=== PATIENT | female | born 1985 | race African-American/Black ===

== ENCOUNTER 2019-10-28 10:09 | Inpatient (IN) ==
[2019-10-28] MEDS ORDERED: CITRIC ACID/SODIUM CITRATE 30 ML UDCUP PO ONE (10:23)
[2019-10-28] MEDS ORDERED: FAMOTIDINE 20 MG/2 ML VIAL IV ONE (10:23)
[2019-10-28] MEDS ORDERED: ceFAZolin 2,000 MG in PREMIX 1 EACH IV ONE (10:23)
[2019-10-28] MEDS ORDERED: LACTATED RINGERS 1,000 ML IV SCH ×2 (10:30→14:30)
[2019-10-28 10:46] LABS: Basophils % 0.5 % (0.0-0.8); Eosinophils % 0.3 % (0.00-10.9); Hemoglobin 11.1 GM/DL (12.0-16.0); Immature Granulocytes % 0.3 %; Immature Granulocytes Absolute 0.02 #; Lymphocytes # 2.4 10*3/uL (1.4-4.0); Lymphocytes % 30.7 % (21.3-54.2); Mean Corpuscular Volume 69.9 FL (87-102); Monocytes % 8.4 % (1.7-12.7); Neutrophils % 59.8 % (38.7-73.9); Platelet Count 291 T/CUMM (130-400); Red Blood Count 5.29 MC/CUMM (3.8-5.5); Red Cell Distribution Width 14.8 % (9.3-17.3); White Blood Count 7.9 T/CUMM (4-12)
[2019-10-28 11:30] LABS: Alanine Aminotransferase 28 U/L (13-56); Albumin 2.8 G/DL (3.4-5.0); Alkaline Phosphatase 172 U/L (45-117); Aspartate Amino Transferase 39 U/L (0-37); Bilirubin,Total < 0.39 MG/DL (0.2-1.0); Blood Urea Nitrogen 7 MG/DL (7-18); Estimated Glom Filtration Rate 151 ML/MIN; Glucose 72 MG/DL (74-106); Osmolality,Calculated 275.4 MOS/KG (273-304); Total Protein 7.8 G/DL (6.4-8.3)
[2019-10-28] MEDS ORDERED: OXYTOCIN/LR 30 UNIT/1,000 ML BAG IV ONE (11:30)
[2019-10-28] MEDS ORDERED: OXYTOCIN 10 UNIT/ML VIAL IM ONE (11:30)
[2019-10-28] MEDS ORDERED: LACTATED RINGERS 1,000 ML IV PRN (12:10)
[2019-10-28] MEDS ORDERED: OXYTOCIN/LR 20 UNIT/1,000 ML BAG IV ONE ×2 (12:30→14:23)
[2019-10-28] MEDS ORDERED: ONDANSETRON 4 MG/2 ML VIAL IV PRN (14:23)
[2019-10-28] MEDS ORDERED: SIMETHICONE CHEW 80 MG TABLET PO PRN (14:23)
[2019-10-28] MEDS ORDERED: DEXTROSE 50% 25 GM/50 ML VIAL IV PRN ×2 (14:23→23:56)
[2019-10-28] MEDS ORDERED: RHO(D) IMMUNE GLOBULIN 300 MCG SYRINGE IM ONE (14:23)
[2019-10-28] MEDS ORDERED: GLUCAGON 1 MG VIAL IM PRN (14:23)
[2019-10-28] MEDS ORDERED: MAGNESIUM HYDROXIDE SUSP 30 ML UDCUP PO PRN (14:23)
[2019-10-28] MEDS ORDERED: ACETAMINOPHEN 325 MG TABLET PO PRN (14:23)
[2019-10-28] MEDS ORDERED: LIDOCAINE 1% 5 ML VIAL ONE (14:54)
[2019-10-28] MEDS ORDERED: PHENYLEPHRINE 10 MG/1 ML VIAL IV ONE (14:54)
[2019-10-28] MEDS ORDERED: MORPHINE 10 MG/10 ML VIAL ONE (14:54)
[2019-10-28] MEDS ORDERED: DEXAMETHASONE 4 MG/1 ML VIAL ONE (14:54)
[2019-10-28] MEDS ORDERED: BUPIVACAINE SPINAL 0.75% 2 ML AMP SPINAL ONE (14:54)
[2019-10-28] MEDS ORDERED: ONDANSETRON 4 MG/2 ML VIAL ONE (14:54)
[2019-10-28] MEDS ORDERED: BUPIVACAINE MPF 0.25% 30 ML VIAL ONE (14:55)
[2019-10-28] MEDS ORDERED: LACTATED RINGERS 1,000 ML IV ONE (14:55)
[2019-10-28 14:56] LABS: Apearance,Urine CLEAR (Clear); Bilirubin,Urine Negative (Negative); Blood, Urine Negative (Negative); Glucose,Urine (UA) Negative (Negative); Ketones,Urine 20 mg/dL (Negative); Mucus,Urine Occasional /LPF (Occasional); Nitrite,Urine Negative (Negative); Protein,Urine Negative; RBC,Urine 1 /HPF (0-4); Squamous Epithelial Cell,Urine Occasional /HPF (0-10); Urine Color Yellow (Yellow); Urine Specific Gravity 1.012 (1.001-1.035); Urine Urobilinogen < 2.0 EU/DL (0.2-1.0); WBC,Urine 1 /HPF (0-6)
[2019-10-28] MEDS ORDERED: diphenhydrAMINE 50 MG/1 ML VIAL IV PRN (18:12)
[2019-10-28] MEDS: DOCUSATE SODIUM 100 MG CAPSULE PO SCH (22:05)
[2019-10-28] MEDS: ceFAZolin 1,000 MG in SYRINGE 1 EACH IV SCH (22:58)
[2019-10-28 23:01] LABS: Basophils % 0.3 % (0.0-0.8); Immature Granulocytes % 0.4 %; Immature Granulocytes Absolute 0.04 #; Lymphocytes # 1.2 10*3/uL (1.4-4.0); Lymphocytes % 11.9 % (21.3-54.2); Mean Corpuscular HGB Conc 29.4 GM/DL (32-36); Mean Platelet Volume 11.6 FL (9.6-12.0); Monocytes % 5.2 % (1.7-12.7); Neutrophils % 82.2 % (38.7-73.9); Platelet Count 260 T/CUMM (130-400); Red Blood Count 5.51 MC/CUMM (3.8-5.5); Red Cell Distribution Width 14.5 % (9.3-17.3)
[2019-10-28 23:22] LABS: Hematocrit 38.7 VOL% (35.7-47.0); Hemoglobin 11.5 GM/DL (12.0-16.0)
[2019-10-29] MEDS: ceFAZolin 1,000 MG in SYRINGE 1 EACH IV SCH (06:24)
[2019-10-29] MEDS: INSULIN REGULAR 100 UNIT/ML SUBCUT SCH ×4 (06:33→21:33)
[2019-10-29 07:04] LABS: Basophils % 0.3 % (0.0-0.8); Eosinophils % 0.1 % (0.00-10.9); Hematocrit 34.5 VOL% (35.7-47.0); Hemoglobin 10.6 GM/DL (12.0-16.0); Immature Granulocytes % 0.4 %; Immature Granulocytes Absolute 0.04 #; Lymphocytes # 2.3 10*3/uL (1.4-4.0); Lymphocytes % 21.8 % (21.3-54.2); Mean Corpuscular HGB Conc 30.7 GM/DL (32-36); Mean Corpuscular Volume 68.7 FL (87-102); Mean Platelet Volume 12.7 FL (9.6-12.0); Monocytes % 8.9 % (1.7-12.7); Neutrophils % 68.5 % (38.7-73.9); Platelet Count 244 T/CUMM (130-400); Red Blood Count 5.02 MC/CUMM (3.8-5.5); Red Cell Distribution Width 14.6 % (9.3-17.3); White Blood Count 10.7 T/CUMM (4-12)
[2019-10-29 07:25] LABS: Hypochromasia 1+; Ovalocytes Slight; Platelet Estimate Adequate
[2019-10-29] MEDS: DOCUSATE SODIUM 100 MG CAPSULE PO SCH ×2 (10:03→20:34)
[2019-10-29] MEDS: MULTIVITAMIN (PRENATAL) TABLET PO SCH (10:03)
[2019-10-29] MEDS: IBUPROFEN 800 MG TABLET PO PRN ×2 (12:13→20:34)
[2019-10-29] MEDS ORDERED: diphenhydrAMINE CAP 25 MG CAPSULE PO PRN (12:59)
[2019-10-29] MEDS ORDERED: diphenhydrAMINE CAP 25 MG CAPSULE ONE (13:05)
[2019-10-29] MEDS ORDERED: BREAST MILK 1 BOTTLE PO PRN (15:21)
[2019-10-29] MEDS ORDERED: INSULIN NPH 100 UNIT/ML SUBCUT SCH (16:30)
[2019-10-29] MEDS ORDERED: oxyCODONE/ACETAMINOPHEN 5-325 MG TABLET PO PRN (21:29)
[2019-10-29] MEDS ORDERED: METOCLOPRAMIDE 10 MG TABLET ONE (21:30)
[2019-10-29] MEDS: oxyCODONE/ACETAMINOPHEN 5-325 MG TABLET PO PRN (21:47)
[2019-10-29] MEDS: METOCLOPRAMIDE 10 MG TABLET PO PRN (21:49)
[2019-10-30] MEDS: METOCLOPRAMIDE 10 MG TABLET PO PRN (05:38)
[2019-10-30] MEDS: oxyCODONE/ACETAMINOPHEN 5-325 MG TABLET PO PRN ×2 (06:46→11:58)
[2019-10-30] MEDS ORDERED: BISACODYL 10 MG SUPP RECTAL PRN (06:50)
[2019-10-30] MEDS: INSULIN REGULAR 100 UNIT/ML SUBCUT SCH ×2 (07:30→12:12)
[2019-10-30] MEDS ORDERED: INSULIN NPH/REGULAR 70/30 100 UNIT/ML SUBCUT SCH ×2 (07:30→16:30)
[2019-10-30] MEDS ORDERED: INSULIN NPH 100 UNIT/ML SUBCUT SCH (07:30)
[2019-10-30] MEDS: DOCUSATE SODIUM 100 MG CAPSULE PO SCH (08:00)
[2019-10-30] MEDS: MULTIVITAMIN (PRENATAL) TABLET PO SCH (08:00)
[2019-10-30] MEDS ORDERED: INFLUENZA VIRUS VACCINE 0.5 ML SYRINGE IM ONE (09:00)
[2019-10-30 09:01] VITALS: BP 144/78
[2019-10-30] MEDS: IBUPROFEN 800 MG TABLET PO PRN (11:57)
== END 2019-10-30 13:40 | disposition home or self-care (01) | DRG 540 ==
LOC: N.LD 10:09 → N.OB 20:10
PROVIDERS: ADMIT Obstetrics & Gynecology; ATTEND Obstetrics & Gynecology